=== PATIENT | female | born 1965 | race Hispanic/Latino ===

== ENCOUNTER 2024-12-09 21:00 | Emergency (ER) | payer MEDICAID, OTHER ==
[2024-12-09 21:47] LABS: Hematocrit 13.6 % (34.9-44.5); Hemoglobin 4.2 g/dL (12.0-15.5); Mean Corpuscular Hemoglobin 34.1 pg (27.0-33.0); Mean Corpuscular Volume 110.6 fL (81.6-98.3); Platelet Count 237 10x3/uL (150-450); Red Blood Cell (RBC) Count 1.23 10x6/uL (3.90-5.03); White Blood Cell (WBC) Count 18.96 10x3/uL (3.5-10.5)
[2024-12-09 21:51] LABS: ALT (SGPT) 16 U/L (Less than 34); AST (SGOT) 39 U/L (11-34); Albumin 2.4 g/dL (3.1-4.5); Alkaline Phosphatase 38 U/L (40-110); Anion Gap 18 mmol/L (10-20); BUN (Urea Nitrogen) 73 mg/dL (9.8-20.1); Bilirubin, Total 0.5 mg/dL (0.3-1.2); Calc. Creatinine Clearance 0 mL/min (70-130); Calcium 8.0 mg/dL (7.8-10.44); Carbon Dioxide 12 mmol/L (22-29); Chloride 105 mmol/L (98-107); Globulin 3.0 g/dL (2.4-3.5); Glucose 286 mg/dL (70-105); Potassium 5.6 mmol/L (3.5-5.1); Sodium 129 mmol/L (136-145)
[2024-12-09] MEDS ORDERED: Droperidol 5 MG/2 ML VIAL ONE (22:16)
[2024-12-09] MEDS ORDERED: diphenhydrAMINE 50 MG/ML VIAL ONE (22:17)
[2024-12-09] MEDS ORDERED: Prochlorperazine 10 MG/2 ML VIAL ONE (22:17)
[2024-12-09 22:26] LABS: #Basophils Less than 0.03 10x3/uL (0.0-0.2); #Eosinophils 0.04 10x3/uL (0.0-0.5); #Monocytes 0.95 10x3/uL (0.0-1.1); #Neutrophils 14.96 10x3/uL (1.5-8.4); %Basophils 0.1 % (0.0-2.0); %Eosinophils 0.2 % (0.0-6.0); %Lymphocytes 11.4 % (18.0-47.0); %Monocytes 5.0 % (0.0-10.0); %Neutrophils 78.9 % (40.0-75.0); MDiff Complete? YES; Macrocytosis SLIGHT = 6-15 cells (100X) (0-5/hpf); Platelet Adequacy Comment Appears Adequate
[2024-12-09 22:43] LABS: Actual Bicarbonate (HCO3a) 11.8 mEq/L (22-28); Analyzer IN Cardio CS ER; Base Excess (BEa) -13.1 mEq/L (-2.0 to +3.0); CO2 Tension 22.8 mmHg (35.0-45.0); Calcium, Ionized (arterial) 1.07 mmol/L (1.12-1.30); Hematocrit-ABG 12 % (36.0-47.0); Hemoglobin (Hb) 4.2 g/dL (12.0-16.0); O2 Tension (PaO2), arterial 113.0 mmHg (80.0-100.0); Potassium - ABG Lab 5.17 mmol/L (3.70-5.30); Puncture Site Right Radial artery; pH, Arterial 7.331 (7.35-7.45)
[2024-12-09 22:46] LABS: ALV-art Gradient 8.230 mmHg (0-20)
[2024-12-09 23:26] LABS: Glucose, Urine (Dipstick) 50 mg/dL (Negative); Leukocyte Negative (Negative); Protein, Urine (Dipstick) 500 mg/dl (Neg-Trace); Specific Gravity, Urine 1.020 (1.005-1.030)
[2024-12-09 23:32] LABS: Bacteria/HPF None Seen HPF (None Seen); CAUTI Indications for Culture Dysuria,urgency,freq; RBC/HPF 0-3 HPF (0-3); WBC/HPF None Seen HPF (0-3)
[2024-12-09 23:33] LABS: Urine Culture Reflex No No
[2024-12-09 23:40] LABS: Troponin I 3.214 ng/mL (< 0.028)
[2024-12-09] MEDS ORDERED: Aspirin Chewable 81 MG TAB ONE (23:53)
[2024-12-10] MEDS ORDERED: Sodium Bicarb 50 MEQ/50 ML Abboject 8.4% SYRINGE ONE (01:45)
== END 2024-12-10 02:12 | disposition left against medical advice (07) ==
LOC: CSHERS 21:00
DX: I12.9 Hypertensive chronic kidney disease with stage 1 through stage 4 chronic kidney disease, or unspecified chronic kidney disease (principal); E11.22 Type 2 diabetes mellitus with diabetic chronic kidney disease; N18.9 Chronic kidney disease, unspecified; R79.89 Other specified abnormal findings of blood chemistry; D64.9 Anemia, unspecified; F41.9 Anxiety disorder, unspecified; R45.1 Restlessness and agitation; Z79.4 Long term (current) use of insulin; Z79.01 Long term (current) use of anticoagulants; Z79.899 Other long term (current) drug therapy
CPT/HCPCS: 36415; 36600; 51701; 70450; 71045; 74176; 80053; 81001; 82805; 83605; 83880; 84484; 85025; 86850; 86900; 86901; 87040; 93005; 96365; 96375; J0780; J1200; J1790; J2543